=== PATIENT | male | born 1985 | race Two or more races ===

== ENCOUNTER 2021-02-10 20:52 | Emergency (ER) | payer MEDICAID, OTHER ==
[~2021-02-10] VITALS: Ht 190.5 cm; Wt 95.6 kg
[2021-02-10] MEDS ORDERED: HYDROcodone/APAP 5/325 TABLET PO PRN (21:30)
[2021-02-10] MEDS ORDERED: HYDROcodone/APAP 5/325 TABLET ONE (21:36)
[2021-02-10 22:40] VITALS: BP 140/76
== END 2021-02-10 23:50 | disposition home or self-care (01) ==
LOC: ED 22:02
DX: G89.11 Acute pain due to trauma (principal); M25.531 Pain in right wrist; M79.641 Pain in right hand; X58.XXXA Exposure to other specified factors, initial encounter; Y93.89 Activity, other specified; Y92.009 Unspecified place in unspecified non-institutional (private) residence as the place of occurrence of the external cause; Y99.8 Other external cause status
CPT/HCPCS: 29125; 99284